=== PATIENT | male | born 1965 | race Caucasian/White ===

== ENCOUNTER 2018-04-07 18:25 | Emergency (ER) | payer MEDICAID ==
[~2018-04-07] VITALS: Ht 167.6 cm; Wt 79.4 kg
[2018-04-07 18:36] VITALS: BP 140/71
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
--- NOTE | 2018-04-07 18:40 | NUR ---
PT AMBULATED TO ER BED 08
[2018-04-07] MEDS ORDERED: BACITRACIN OINT 500 UNITS/GM PKT TP ONE (19:00)
[2018-04-07] MEDS ORDERED: IBUPROFEN 600 MG TAB PO ONE (19:00)
--- NOTE | 2018-04-07 19:12 | NUR ---
PT REFUSED XRAY
--- NOTE | 2018-04-07 19:15 | NUR ---
RECEIVED REPORT FROM AM NURSE. PT RESTING COMFORTABLY IN BED, ADMINISTERED MED WITH EDUCATION. EMT PREPARING FOR R FOOT IRRIGATION.
--- NOTE | 2018-04-07 19:18 | NUR ---
REPORT GIVEN TO AIDA, FOR CONTINUITY OF CARE
[2018-04-07 19:35] VITALS: BP 138/74
--- NOTE | 2018-04-07 19:35 | NUR ---
Patient discharged with v/s stable. Written and verbal after care instructions given and explained. Patient alert, oriented and verbalized understanding of instructions. Ambulatory with steady gait. All questions addressed prior to discharge. ID band removed. Patient advised to follow up with PMD. Rx of BACITRACIN, CIPRO, AND IBUPROFEN given. Patient educated on indication of medication including possible reaction and side effects. Opportunity to ask questions provided and answered.
== END 2018-04-07 19:35 | disposition home or self-care (01) ==
LOC: MED 18:25
DX: S91.331A Puncture wound without foreign body, right foot, initial encounter (principal); W45.0XXA Nail entering through skin, initial encounter; Y93.01 Activity, walking, marching and hiking; Y99.8 Other external cause status; Y92.89 Other specified places as the place of occurrence of the external cause
CPT/HCPCS: 99283